=== PATIENT | male | born 1950 | race Asian ===

== ENCOUNTER 2023-07-31 11:18 | Outpatient (RCR) | payer MEDICARE, SELFPAY ==
[2023-07-11 13:59] LABS: Glucose - Point of Care 256 mg/dl (70-99)
[2023-07-11 14:36] LABS: Glucose - Point of Care 183 mg/dl (70-99)
[2023-07-15 11:16] LABS: Glucose - Point of Care 169 mg/dl (70-99)
[2023-07-15 12:09] LABS: Glucose - Point of Care 103 mg/dl (70-99)
[2023-07-17 11:01] LABS: Glucose - Point of Care 180 mg/dl (70-99)
[2023-07-17 11:46] LABS: Glucose - Point of Care 129 mg/dl (70-99)
[2023-07-22 11:07] LABS: Glucose - Point of Care 181 mg/dl (70-99)
[2023-07-22 12:08] LABS: Glucose - Point of Care 136 mg/dl (70-99)
[2023-07-24 10:55] LABS: Glucose - Point of Care 243 mg/dl (70-99)
[2023-07-24 11:50] LABS: Glucose - Point of Care 136 mg/dl (70-99)
[2023-07-26 11:09] LABS: Glucose - Point of Care 208 mg/dl (70-99)
[2023-07-26 12:13] LABS: Glucose - Point of Care 93 mg/dl (70-99)
[2023-07-29 11:03] LABS: Glucose - Point of Care 217 mg/dl (70-99)
[2023-07-29 11:56] LABS: Glucose - Point of Care 139 mg/dl (70-99)
== END 2023-07-31 23:59 | disposition home or self-care (01) ==
LOC: CRHB 11:18
PROVIDERS: ATTENDING PHYSICIAN Internal Medicine Cardiovascular Disease
DX: I25.10 Atherosclerotic heart disease of native coronary artery without angina pectoris (principal); Z95.5 Presence of coronary angioplasty implant and graft
CPT/HCPCS: 82962; G0422; G0423

== ENCOUNTER 2023-08-16 13:36 | Outpatient (RCR) | payer MEDICARE, SELFPAY | END 2023-08-16 23:59 | disposition home or self-care (01) | LOC: CRHB 13:36 | PROVIDERS: ATTENDING PHYSICIAN Internal Medicine Cardiovascular Disease | DX: I25.10 Atherosclerotic heart disease of native coronary artery without angina pectoris (principal); Z95.5 Presence of coronary angioplasty implant and graft | CPT/HCPCS: G0422; G0423 ==

== ENCOUNTER 2023-10-28 09:57 | Outpatient (RCR) | payer MEDICARE, SELFPAY | END 2023-10-28 23:59 | disposition home or self-care (01) | LOC: CRHB 09:57 | PROVIDERS: ATTENDING PHYSICIAN Internal Medicine Cardiovascular Disease; FAMILY PHYSICIAN Family Medicine | DX: I25.10 Atherosclerotic heart disease of native coronary artery without angina pectoris (principal); Z95.5 Presence of coronary angioplasty implant and graft | CPT/HCPCS: G0422; G0423 ==

== ENCOUNTER 2023-11-13 09:53 | Outpatient (RCR) | payer MEDICARE, SELFPAY | END 2023-11-13 23:59 | disposition home or self-care (01) | LOC: CRHB 09:53 | PROVIDERS: ATTENDING PHYSICIAN Internal Medicine Cardiovascular Disease; FAMILY PHYSICIAN Family Medicine | DX: I25.10 Atherosclerotic heart disease of native coronary artery without angina pectoris (principal); Z95.5 Presence of coronary angioplasty implant and graft; I10 Essential (primary) hypertension; E78.5 Hyperlipidemia, unspecified | CPT/HCPCS: G0422; G0423 ==